=== PATIENT | female | born 1980 | race Caucasian/White ===

== ENCOUNTER 2017-11-20 06:44 | Emergency (ER) | payer MEDICAID ==
[~2017-11-20] VITALS: Ht 157.5 cm; Wt 73.1 kg
[2017-11-20 06:52] VITALS: TEMP 97.8
[2017-11-20] MEDS ORDERED: PERCOCET 325 MG1 TA2 PO (07:25)
[2017-11-20] MEDS ORDERED: MOTRIN 800800 MG/TAB PO (07:25)
[2017-11-20 07:26] LABS: BASO % 0.3 % (0.0-2.0); EOS # 0.2 (0.0-0.7); EOS % 2.6 % (0-4.0); GRAN # 5.9 (1.4-6.5); GRAN % 76.7 % (42.2-75.2); HEMATOCRIT 38.5 % (37.0-47.0); HEMOGLOBIN 13.2 g/dl (12.5-16.0); LYMPH % 13.6 % (20.0-51.0); MEAN CELL VOLUME 89 fl (80.0-100.0); MEAN CORPUSCULAR HEMOGLOBIN 30 pg (27.0-31.0); MEAN CORPUSCULAR HGB CONC 34 g/dl (33.0-37.0); MEAN PLATELET VOLUME 10.1 fl (7.4-10.4); MONO # 0.5 (0.1-0.6); MONO % 6.4 % (1.7-9.3); PLATELET COUNT 270 K/mm3 (130-400); RED BLOOD COUNT 4.35 M/mm3 (4.10-5.30); REDCELL DISTRIBUTION WIDTH-CV 13.6 % (11.5-14.5)
[2017-11-20 07:45] LABS: ALBUMIN 3.9 gm/dL (3.5-5.0); BILIRUBIN,TOTAL 0.7 mg/dL (0.0-1.0); CALCIUM 9.1 mg/dL (8.4-10.2); CREATININE, serum 0.68 mg/dL (0.52-1.25); POTASSIUM 3.9 mmol/L (3.4-5.0); TOTAL PROTEIN 7.5 gm/dL (6.4-8.2)
[2017-11-20 08:02] LABS: COLLECTION METHOD CLEAN CATCH
[2017-11-20 08:11] LABS: PH 8 (5-8); URINE APPEARANCE Clear; URINE BACTERIA Rare /hpf; URINE BILIRUBIN Negative (NEGATIVE); URINE BLOOD Negative (NEGATIVE); URINE COLOR Straw; URINE GLUCOSE Negative (NEGATIVE); URINE KETONE Negative (NEGATIVE); URINE LEUKOCYTE ESTERASE 2+ (NEGATIVE); URINE NITRATE Negative (NEGATIVE); URINE PROTEIN(semi-quant) Negative (NEGATIVE); URINE RBC 0-2 /hpf; URINE UROBILINOGEN Negative (NEGATIVE)
[2017-11-20 08:24] LABS: C-REACTIVE PROTEIN 0.8 mg/dL (0.0-0.9)
[2017-11-20] MEDS ORDERED: CEPHALEXIN500 M1 PO (09:59)
[2017-11-20] MEDS ORDERED: PHENERGAN25 MG RC (09:59)
[2017-11-20] MEDS ORDERED: ZOFRAN ODT4 MG PO (09:59)
[2017-11-20 10:30] VITALS: BP 118/79; PULSE 70
== END 2017-11-20 10:30 | disposition home or self-care (01) ==
LOC: COL.ER 06:44
PROVIDERS: Emergency Medicine
DX: N39.0 Urinary tract infection, site not specified (principal); R11.10 Vomiting, unspecified; Z90.710 Acquired absence of both cervix and uterus; Z98.890 Other specified postprocedural states
CPT/HCPCS: J0696; J1170; J2405; J7030; Q9967

== ENCOUNTER → 2019-04-18 | Outpatient (CLI) | payer MEDICAID ==
[~2019-04-18] MED LIST: CEPHALEXIN500 M1 PO; MOTRIN 800800 MG/TAB PO; PERCOCET 325 MG1 TA2 PO; PHENERGAN25 MG RC; ZOFRAN ODT4 MG PO
== END ==
LOC: MC.RAD 11:19
DX: Z12.31 Encounter for screening mammogram for malignant neoplasm of breast (principal); N64.89 Other specified disorders of breast

== ENCOUNTER → 2019-04-29 | Outpatient (CLI) | payer MEDICAID | LOC: MC.RAD 12:34 | DX: Z12.31 Encounter for screening mammogram for malignant neoplasm of breast (principal); R92.8 Other abnormal and inconclusive findings on diagnostic imaging of breast | CPT/HCPCS: G0279 ==

== ENCOUNTER → 2020-06-26 | Outpatient (CLI) | payer MEDICAID | LOC: MC.RAD 08:26 | DX: Z12.31 Encounter for screening mammogram for malignant neoplasm of breast (principal) ==

== ENCOUNTER → 2020-07-20 | Outpatient (REF) | LOC: ZLAB.WCH 17:02 | DX: Z01.89 Encounter for other specified special examinations (principal) ==

== ENCOUNTER → 2020-07-24 | Outpatient (CLI) | payer MEDICAID | LOC: COL.RAD 11:39 | DX: C32.0 Malignant neoplasm of glottis (principal); K76.9 Liver disease, unspecified | CPT/HCPCS: A9585 ==

== ENCOUNTER 2020-07-27 09:21 | Outpatient (RCR) | payer MEDICAID | END 2020-10-25 | disposition home or self-care (01) | LOC: WSST | DX: C32.0 Malignant neoplasm of glottis (principal); F17.210 Nicotine dependence, cigarettes, uncomplicated ==

== ENCOUNTER → 2020-07-27 | Outpatient (CLI) | payer MEDICAID | LOC: DIET.TELE 08:48 | DX: C32.0 Malignant neoplasm of glottis (principal); Z68.25 Body mass index [BMI] 25.0-25.9, adult | CPT/HCPCS: 98972 ==

== ENCOUNTER → 2021-07-14 | Outpatient (CLI) | payer MEDICAID | LOC: COL.RAD 12:34 | DX: N13.30 Unspecified hydronephrosis (principal) ==

== ENCOUNTER → 2021-08-12 | Outpatient (CLI) | payer MEDICAID | LOC: MC.RAD 13:07 | DX: Z12.31 Encounter for screening mammogram for malignant neoplasm of breast (principal) ==

== ENCOUNTER 2021-09-02 12:21 | Day surgery (SDC) | payer MEDICAID ==
[~2021-09-02] VITALS: Ht 157.5 cm; Wt 68.4 kg
[2021-09-02 12:49] VITALS: BP 116/64; PULSE 90; TEMP 97.9
[2021-09-02 13:22] LABS: CALCIUM 9.2 mg/dL (8.4-10.2); CREATININE, serum 0.75 mg/dL (0.57-1.11); POTASSIUM 3.7 mmol/L (3.5-4.5)
[2021-09-02] MEDS ORDERED: PROTONIX 40MG T40 MG PO (13:34)
[2021-09-02] MEDS ORDERED: KLONOPIN 0.5MG0.5 MG PO (13:34)
[2021-09-02] MEDS ORDERED: PLAQUENIL 200M200 MG PO (13:35)
[2021-09-02] MEDS ORDERED: VALTREX 50500 MG/TAB PO (13:35)
[2021-09-02] MEDS ORDERED: [UNRECOGNIZED DRUG - OTHER] SQ (13:37)
--- NOTE | 2021-09-02 13:38 | NUR ---
Initial visit; Patient thanked Asset Protection Officer for looking in on her and offering prayer and encouragement prior to her surgical procedure.
[2021-09-02] MEDS ORDERED: TYLENOL 500MG500 MG PO (13:40)
[2021-09-02] MEDS ORDERED: PYRIDIUM 100MG100 MG PO (14:54)
[2021-09-02] MEDS ORDERED: FLOMAX 0.40.4 MG/CAP PO (14:54)
[2021-09-02 15:30] VITALS: BP 106/62; PULSE 73; TEMP 98.2
--- NOTE | 2021-09-02 15:30 | NUR ---
PATIENT ARRIVED BACK INTO [facility]. REPORT RECIEVED FROM MERY ZHANG. PATIENT REQUESTING SPRITE AND BLUEBERRY MUFFIN. DENIES PAIN OR NAUSEA. PATIENT ALERT AND AWAKE.
[2021-09-02 15:45] VITALS: BP 120/67; PULSE 88; TEMP 98.2
--- NOTE | 2021-09-02 15:45 | NUR ---
PATIENT RIDE NOTIFIED THAT PATIENT WILL BE READY TO GO IN 30-45 MINUTES. PATIENT TOLERATING FOOD AND DRINK WELL. NO COMPLAINT OF PAIN OR NAUSEA.
[2021-09-02 16:00] VITALS: BP 120/77; PULSE 82
--- NOTE | 2021-09-02 16:00 | NUR ---
PATIENT REQUESTING TO USE RESTROOM. IV SWITCHED TO SALINE LOCK. PATIENT AMBULATED TO RESTROOM INDEPENDENTLY. CAME BACK INTO THE ROOM AND REQUESTED TO GET DRESSED. PATIENT GOT DRESSED INDEPENDENTLY.
--- NOTE | 2021-09-02 16:15 | NUR ---
IV REMOVED. WENT THROUGH DISCHARGE INSTRUCTIONS WITH PATIENT, QUESTIONS ANSWERED. PATIENT DENIES PAIN OR NAUSEA. TOLERATED FOOD AND DRINK. WAITING ON RIDE TO GET HERE.
--- NOTE | 2021-09-02 16:30 | NUR ---
PATIENT STATES RIDE SHOULD BE HERE SHORTLY. PATIENT ESCORTED TO EMERGENCY DEPARTMENT ENTRACE. PATIENT'S RIDE ARRIVED. PATIENT GOT INTO PERSONAL VEHICLE INDEPENDENTLY. PATIENT LEFT IN THE CARE OF HER SIGNIFICANT OTHER.
[2021-09-02 16:49] VITALS: BP 106/62; PULSE 73; TEMP 98.2
== END 2021-09-02 16:45 | disposition home or self-care (01) ==
LOC: SDCO 12:21
PROVIDERS: Nurse Anesthetist, Certified Registered
DX: N13.39 Other hydronephrosis (principal); N20.0 Calculus of kidney; N23 Unspecified renal colic; Z85.818 Personal history of malignant neoplasm of other sites of lip, oral cavity, and pharynx; Z85.821 Personal history of Merkel cell carcinoma; Z87.891 Personal history of nicotine dependence
CPT/HCPCS: C1769; J0690; J2405; J2704; J7120; Q9967

== ENCOUNTER → 2022-01-04 | Outpatient (CLI) | payer MEDICAID ==
[~2022-01-04] MED LIST changes: +FLOMAX 0.40.4 MG/CAP PO; +KLONOPIN 0.5MG0.5 MG PO; +PLAQUENIL 200M200 MG PO; +PROTONIX 40MG T40 MG PO; +PYRIDIUM 100MG100 MG PO; +TYLENOL 500MG500 MG PO; +VALTREX 50500 MG/TAB PO; +[UNRECOGNIZED DRUG - OTHER] SQ
== END ==
LOC: COL.RAD 10:43
DX: N20.0 Calculus of kidney (principal); N26.1 Atrophy of kidney (terminal)

== ENCOUNTER → 2022-01-25 | Outpatient (CLI) | payer MEDICAID | LOC: ZCOL.LAB 16:19 | DX: J34.89 Other specified disorders of nose and nasal sinuses (principal) ==

== ENCOUNTER 2022-06-23 13:00 | Outpatient (RCR) | payer MEDICAID | END 2022-07-12 | disposition home or self-care (01) | LOC: WSST | DX: R49.0 Dysphonia (principal); C32.0 Malignant neoplasm of glottis ==

== ENCOUNTER 2022-07-19 12:45 | Outpatient (RCR) | payer MEDICAID | END 2022-08-09 | disposition home or self-care (01) | LOC: WSST | DX: R49.0 Dysphonia (principal); Z85.21 Personal history of malignant neoplasm of larynx ==

== ENCOUNTER 2022-08-16 08:28 | Outpatient (RCR) | payer MEDICAID | END 2022-09-09 | disposition home or self-care (01) | LOC: WSST | DX: R49.0 Dysphonia (principal) ==

== ENCOUNTER 2022-09-19 07:57 | Outpatient (RCR) | payer MEDICAID | END 2022-10-09 | disposition home or self-care (01) | LOC: WSST | DX: R49.0 Dysphonia (principal) ==

== ENCOUNTER → 2023-10-10 | Outpatient (CLI) | payer MEDICAID | LOC: MC.RAD 10:55 | DX: Z12.31 Encounter for screening mammogram for malignant neoplasm of breast (principal) ==